=== PATIENT | male | born 1995 | race Two or more races ===

== ENCOUNTER 2021-11-22 02:02 | Emergency (ER) | payer OTHER ==
[~2021-11-22] VITALS: Ht 172.7 cm; Wt 65.8 kg
--- NOTE | 2021-11-22 02:14 | NUR ---
PATIENT BIBRA 86 FROM HOME C/O OVERDOSING ON SLEEPING PILL PER MOTHER. PATIENT A/O X 4, RR EVEN AND UNLABORED, NO SOB NOTED. PATIENT AFEBRILE. PATIENT TAKEN TO ER BED 13, [employer] AT BESIDE. NO ACUTE DISTRESS NOTED. PATIENT CONNECTED TO CARDIAC AND POX MONITORS.
--- NOTE | 2021-11-22 02:51 | NUR ---
MANAGER ASSURANCE AT PT'S BEDSIDE
--- NOTE | 2021-11-22 02:57 | NUR ---
Patsy owen in [facility] - 11/22/21 at 0301 by JAZZMINE COVID ANTIGEN AND URINE SAMPLE COLLECTED AND SENT TO LAB
--- NOTE | 2021-11-22 03:00 | NUR ---
COVID ANTIGEN SWAB COLLECTED AND SENT TO LAB. PT NOT ABLE TO URINATE AT THIS TIME. WILL F/U AND TRY AGAIN LATER
[2021-11-22 03:01] LABS: BASOPHILS # (AUTO) 0.1 K/uL (0.0-0.2); BASOPHILS % (AUTO) 0.9 % (0.0-2.0); EOSINOPHILS % (AUTO) 0.7 % (0.0-6.0); HEMATOCRIT 38 % (39-51); HEMOGLOBIN 13.4 g/dL (13.5-17.5); LYMPHOCYTES # (AUTO) 1.7 K/uL (0.8-4.8); MEAN CORPUSCULAR HGB CONC 35 g/dl (31.0-36.0); MEAN CORPUSCULAR VOLUME 84 fL (80-96); MONOCYTES # (AUTO) 0.7 K/uL (0.1-1.30); MONOCYTES % (AUTO) 8.4 % (2.0-12.0); NEUTROPHILS # (AUTO) 6.1 K/uL (1.8-8.9); PLATELET COUNT (AUTO) 361 K/uL (150-450); RED BLOOD CELL COUNT(AUTO) 4.53 MIL/uL (4.5-6.0); WHITE BLOOD COUNT (AUTO) 8.7 K/uL (4.3-11.0)
[2021-11-22 03:19] LABS: ALANINE AMINOTRANSFERASE 20 U/L (12-78); ALBUMIN 4.2 g/dL (3.4-5.0); ALKALINE PHOSPHATASE 74 U/L (46-116); ASPARTATE AMINOTRANSFERASE 18 U/L (15-37); BILIRUBIN,DIRECT 0.1 mg/dL (0.0-0.2); BILIRUBIN,TOTAL 0.3 mg/dL (0.2-1.0); CALCIUM, SERUM 9.3 mg/dL (8.5-10.1); CARBON DIOXIDE 29 mmol/L (21-32); CHLORIDE 102 mmol/L (98-107); CREATININE 0.8 mg/dL (0.6-1.3); GLUCOSE 97 mg/dL (74-106); POTASSIUM 3.4 mmol/L (3.5-5.1); SODIUM SERUM 137 mmol/L (136-145); TOTAL PROTEIN, SERUM 7.6 g/dL (6.4-8.2); UREA NITROGEN, BLOOD 14 mg/dL (7-18)
--- NOTE | 2021-11-22 03:30 | NUR ---
URINE COLLECTED AND SENT TO LAB
--- NOTE | 2021-11-22 03:31 | NUR ---
PT AWAKE AND AMBULATORY AT THIS TIME. RESP EVEN AND NON LABORED. SAFETY MEASURES CONTINUED
[2021-11-22 03:37] LABS: ACETAMINOPHEN < 2 ug/ml (10-30)
[2021-11-22 03:38] LABS: ALCOHOL, BLOOD < 3 mg/dL (0-0)
[2021-11-22 03:45] LABS: BILIRUBIN,URINE NEGATIVE (NEGATIVE); COLOR,URINE YELLOW (YELLOW); LEUKOCYTE ESTERASE ,URINE NEGATIVE (NEGATIVE); NITRITE, URINE NEGATIVE (NEGATIVE); PH,URINE 6.5 (5.0-8.0); PROTEIN,URINE NEGATIVE (NEGATIVE); UGLUCOSE NEGATIVE (NEGATIVE); UROBILINOGEN,URINE 0.2 EU/dL (0.2)
[2021-11-22] MEDS ORDERED: diphenhydrAMINE HCL 50 MG/ML VIAL ONE (03:52)
[2021-11-22] MEDS ORDERED: LORAZEPAM INJ 2 MG/ML VIAL ONE (03:52)
[2021-11-22] MEDS ORDERED: HALOPERIDOL LACTATE INJ 5 MG/ML VIAL ONE (03:52)
--- NOTE | 2021-11-22 03:58 | NUR ---
PT YELLIING, NON COOPERATIVE, AND IN EMOTIONAL DISTRESS. ADMINISTERED BENDARYL 50MG, HALDOL 5MG, ATIVAN 2MG ORDERED. PT CONNECTED TO POX AND MONITOR. SAFETY MEASURES IN PLACE. WILL CONTINUE TO REASSES PT.
[2021-11-22] MEDS ORDERED: LORAZEPAM INJ 2 MG/ML VIAL IV ONE (04:00)
[2021-11-22] MEDS ORDERED: HALOPERIDOL LACTATE INJ 5 MG/ML VIAL IM ONE (04:00)
[2021-11-22] MEDS ORDERED: diphenhydrAMINE HCL 50 MG/ML VIAL IM ONE (04:00)
--- NOTE | 2021-11-22 10:27 | NUR ---
PT'S MOTHER (JONATAN) [phone]
--- NOTE | 2021-11-22 13:55 | NUR ---
Patient discharged to home in stable condition. Written and verbal after care instructions given. Patient verbalizes understanding of instruction.IV removed. Catheter intact and site benign. Pressure and 4x4 applied to site. No bleeding noted.
[2021-11-22 13:56] VITALS: BP 133/82
== END 2021-11-22 13:56 | disposition home or self-care (01) ==
LOC: ER 02:04
DX: T65.91XA Toxic effect of unspecified substance, accidental (unintentional), initial encounter (principal); R00.0 Tachycardia, unspecified; Y92.89 Other specified places as the place of occurrence of the external cause; F15.10 Other stimulant abuse, uncomplicated; R45.1 Restlessness and agitation; Z20.822 Contact with and (suspected) exposure to COVID-19
CPT/HCPCS: 36415; 80048; 80076; 80143; 80307; 80320; 81003; 85025; 87426; 96372 ×2; 99284; C9803; J1200; J1630; J2060; G0480